=== PATIENT | male | born 1995 | race Caucasian/White ===

== ENCOUNTER 2018-06-15 11:48 | Emergency (ER) | payer MEDICAID ==
[~2018-06-15] VITALS: Ht 177.8 cm; Wt 97.7 kg
[~2018-06-15 11:48] MED LIST: MEDICAL MARJUANA; ONDA4TAB6 PO
[2018-06-15 12:33] LABS: CLARITY,URINE CLEAR (Clear); COLOR,URINE AMBER (Yellow); GLUCOSE, URINE NEGATIVE (Neg); KETONES,URINE TRACE mg/dl (Neg); LEUKOCYTE ESTERASE ,URINE NEGATIVE (Neg); NITRITES, URINE NEGATIVE (Neg); OCCULT BLOOD,URINE TRACE-LYSED (Neg); PROTEIN,URINE 100 mg/dl (Neg)
[2018-06-15 12:37] LABS: UA COLLECTION TYPE CLN CATCH MIDSTREAM
[2018-06-15 12:43] LABS: MUCUS STRANDS MANY /LPF (Neg); SQUAMOUS EPITHELIAL CELL,UR FEW /LPF (FEW)
[2018-06-15 12:44] LABS: BACTERIA,URINE FEW /HPF (Neg); WBC,URINE 0-4 /HPF (0-4)
[2018-06-15 12:45] LABS: RBC,URINE 0-2 /HPF (0-2)
[2018-06-15 13:15] VITALS: BP 132/92
== END 2018-06-15 13:18 | disposition home or self-care (01) ==
LOC: ER 11:49
DX: R36.1 Hematospermia (principal); R11.2 Nausea with vomiting, unspecified; F12.90 Cannabis use, unspecified, uncomplicated; Z79.899 Other long term (current) drug therapy
CPT/HCPCS: 81001; 99283

== ENCOUNTER 2019-02-28 09:45 | Emergency (ER) | payer MEDICAID ==
[~2019-02-28] VITALS: Ht 177.8 cm; Wt 99.5 kg
[2019-02-28] MEDS ORDERED: CHLO25CA10 PO (10:32)
[2019-02-28] MEDS ORDERED: PRED20TA PO (10:32)
[2019-02-28 10:55] VITALS: BP 141/95
== END 2019-02-28 10:56 | disposition home or self-care (01) ==
LOC: ER 09:46
DX: L23.9 Allergic contact dermatitis, unspecified cause (principal); F10.239 Alcohol dependence with withdrawal, unspecified; F32.9 Major depressive disorder, single episode, unspecified; F12.90 Cannabis use, unspecified, uncomplicated; Y90.0 Blood alcohol level of less than 20 mg/100 ml
CPT/HCPCS: 99284

== ENCOUNTER 2019-05-04 09:46 | Emergency (ER) | payer MEDICAID ==
[~2019-05-04] VITALS: Ht 177.8 cm; Wt 97.6 kg
[~2019-05-04 09:46] MED LIST changes: +CHLO25CA10 PO
[2019-05-04 10:33] LABS: BASOPHILS # (AUTO) 0.1 X10'3 (0-0.2); EOSINOPHILS # (AUTO) 0.1 X10'3 (0-0.9); LYMPHOCYTES # (AUTO) 2.6 X10'3 (1.1-4.8); LYMPHOCYTES % (AUTO) 31.3 % (21-51); PLATELET COUNT 220 X10'3 (140-440); RED BLOOD COUNT 5.24 X10'6 (4.70-6.10)
[2019-05-04 10:35] LABS: BASOPHILS % (AUTO) 0.9 % (0-1); EOSINOPHILS % (AUTO) 0.9 % (0-6); HEMATOCRIT 46.1 % (42.0-52.0); HEMOGLOBIN 16.3 g/dl (14.0-17.9); MEAN CORPUSCULAR HGB CONC 35.3 g/dL (33.0-36.5); MEAN CORPUSCULAR VOLUME 87.9 FL (78-98); MEAN PLATELET VOLUME 7.7 FL (7.4-10.4); MONOCYTES # (AUTO) 0.4 X10'3 (0-0.9); MONOCYTES % (AUTO) 4.6 % (2-12); NEUTROPHILS # (AUTO) 5.1 X10'3 (1.8-7.7); NEUTROPHILS % (AUTO) 62.3 % (42-75); RED CELL DISTRIBUTION WIDTH 14.5 % (11.5-14.5); WHITE BLOOD COUNT 8.2 X10'3 (4.5-11.0)
[2019-05-04] MEDS ORDERED: famotidine 20mg tablet PO ONE (10:35)
[2019-05-04] MEDS ORDERED: mag hydrox/Alum hydrox/simeth 30ml oral suspension PO ONE (10:35)
[2019-05-04 10:48] LABS: ALANINE AMINOTRANSFERASE 64 U/L (12-78); ALBUMIN 4.3 G/DL (3.4-5.0); ALBUMIN/GLOBULIN RATIO 1.1 (1.1-1.5); ALKALINE PHOSPHATASE 104 IU/L (46-116); ANION GAP 15 (8-16); ASPARTATE AMINO TRANSFERASE 55 U/L (10-37); BILIRUBIN,TOTAL 0.9 MG/DL (0.1-1.0); BLOOD UREA NITROGEN 13 MG/DL (7-18); BUN/CREATININE RATIO 11.9 (5.4-32.0); CALCIUM 9.2 MG/DL (8.5-10.1); CHLORIDE 101 MMOL/L (99-107); CREATININE 1.09 MG/DL (0.60-1.10); GLUCOSE 120 MG/DL (70-104); POTASSIUM 3.6 MMOL/L (3.5-5.1); SODIUM 140 MMOL/L (135-145); TOTAL CARBON DIOXIDE 23.6 MMOL/L (24-32); TOTAL PROTEIN 8.3 G/DL (6.4-8.2); eGFR 83 ML/MIN
[2019-05-04 10:54] LABS: C-REACTIVE PROTEIN < 0.05 MG/DL (0.0-0.5)
[2019-05-04] MEDS ORDERED: CHLO25CA10 PO (11:49)
[2019-05-04] MEDS ORDERED: PANT20TA3 PO (11:49)
[2019-05-04 11:50] VITALS: BP 141/83
== END 2019-05-04 11:59 | disposition home or self-care (01) ==
LOC: ER 09:46
DX: R07.89 Other chest pain (principal); R06.02 Shortness of breath; R11.10 Vomiting, unspecified; I25.10 Atherosclerotic heart disease of native coronary artery without angina pectoris; I25.2 Old myocardial infarction; F32.9 Major depressive disorder, single episode, unspecified; F12.90 Cannabis use, unspecified, uncomplicated; Z72.89 Other problems related to lifestyle; Z79.899 Other long term (current) drug therapy
CPT/HCPCS: 36415; 71045; 80053; 84484; 85025; 85651; 86140; 93005; 99285

== ENCOUNTER 2019-05-30 13:06 | Emergency (ER) | payer MEDICAID ==
[~2019-05-30] VITALS: Ht 154.9 cm; Wt 98.3 kg
[~2019-05-30 13:06] MED LIST changes: +PANT20TA3 PO
[2019-05-30 13:08] VITALS: BP 142/94
[2019-05-30] MEDS ORDERED: CHLO25CA10 PO (13:44)
== END 2019-05-30 14:49 | disposition home or self-care (01) ==
LOC: ER 13:07
DX: F10.10 Alcohol abuse, uncomplicated (principal); I25.10 Atherosclerotic heart disease of native coronary artery without angina pectoris; I25.2 Old myocardial infarction; F12.90 Cannabis use, unspecified, uncomplicated; Z87.11 Personal history of peptic ulcer disease; Z79.899 Other long term (current) drug therapy; Y90.9 Presence of alcohol in blood, level not specified
CPT/HCPCS: 99283

== ENCOUNTER 2019-06-02 10:01 | Emergency (ER) | payer MEDICAID ==
[~2019-06-02] VITALS: Ht 177.8 cm; Wt 93.2 kg
[2019-06-02 10:03] VITALS: BP 136/95
--- NOTE | 2019-06-02 10:20 | NUR ---
PT IS 23 YO MALE NEEDS MEDICAL CLEARANCE FOR VISIONS OF THE CROSS FOR ETOH DETOX, PT LAST DRINK WAS TUESDAY, CURRENTLY ON LIBRIUM FOR WITHDRAWALS, SLIGHTLY SHAKY "LITTLE CONFUSED", DENIES HALLUCINATIONS, PT IS CALM AND COOPERATIVE, WAITING TO BE BE EVALUATED BY PROVIDER
[2019-06-02] MEDS ORDERED: chlordiazePOXIDE 25mg capsule PO ONE (10:35)
== END 2019-06-02 10:46 | disposition home or self-care (01) ==
LOC: ER 10:02
DX: R11.10 Vomiting, unspecified (principal); R25.1 Tremor, unspecified; M79.18 Myalgia, other site; I25.10 Atherosclerotic heart disease of native coronary artery without angina pectoris; I25.2 Old myocardial infarction; F32.9 Major depressive disorder, single episode, unspecified; F12.90 Cannabis use, unspecified, uncomplicated; Z72.89 Other problems related to lifestyle; Z79.899 Other long term (current) drug therapy
CPT/HCPCS: 99281

== ENCOUNTER 2019-06-03 11:52 | Emergency (ER) | payer MEDICAID ==
[~2019-06-03] VITALS: Ht 177.8 cm; Wt 105.0 kg
[2019-06-03 13:00] VITALS: BP 141/98
== END 2019-06-03 13:01 | disposition home or self-care (01) ==
LOC: ER 11:52
DX: J06.9 Acute upper respiratory infection, unspecified (principal); Z20.828 Contact with and (suspected) exposure to other viral communicable diseases; R05 Cough; R21 Rash and other nonspecific skin eruption; I25.10 Atherosclerotic heart disease of native coronary artery without angina pectoris; I25.2 Old myocardial infarction; F32.9 Major depressive disorder, single episode, unspecified; F12.90 Cannabis use, unspecified, uncomplicated; Z87.11 Personal history of peptic ulcer disease; Z72.89 Other problems related to lifestyle; Z79.899 Other long term (current) drug therapy
CPT/HCPCS: 36415; 71045; 87635; 99284

== ENCOUNTER 2019-06-21 16:40 | Emergency (ER) | payer MEDICAID ==
[~2019-06-21] VITALS: Ht 177.8 cm; Wt 95.0 kg
[2019-06-21 17:35] LABS: BASOPHILS # (AUTO) 0.1 X10'3 (0-0.2); EOSINOPHILS % (AUTO) 0.5 % (0-6); HEMATOCRIT 50.1 % (42.0-52.0); HEMOGLOBIN 17.1 g/dl (14.0-17.9); LYMPHOCYTES # (AUTO) 2.1 X10'3 (1.1-4.8); LYMPHOCYTES % (AUTO) 27.1 % (21-51); MEAN CORPUSCULAR HEMOGLOBIN 30.5 PG (27.0-31.0); MEAN CORPUSCULAR HGB CONC 34.2 g/dL (33.0-36.5); MEAN CORPUSCULAR VOLUME 89.3 FL (78-98); MEAN PLATELET VOLUME 8.2 FL (7.4-10.4); MONOCYTES # (AUTO) 0.4 X10'3 (0-0.9); MONOCYTES % (AUTO) 4.7 % (2-12); NEUTROPHILS # (AUTO) 5.2 X10'3 (1.8-7.7); NEUTROPHILS % (AUTO) 66.7 % (42-75); PLATELET COUNT 254 X10'3 (140-440); RED BLOOD COUNT 5.61 X10'6 (4.70-6.10); RED CELL DISTRIBUTION WIDTH 14.3 % (11.5-14.5); WHITE BLOOD COUNT 7.8 X10'3 (4.5-11.0)
[2019-06-21 17:44] LABS: ALANINE AMINOTRANSFERASE 129 U/L (12-78); ALBUMIN 4.4 G/DL (3.4-5.0); ALKALINE PHOSPHATASE 109 IU/L (46-116); ANION GAP 14 (8-16); ASPARTATE AMINO TRANSFERASE 112 U/L (10-37); BILIRUBIN,TOTAL 0.7 MG/DL (0.1-1.0); BLOOD UREA NITROGEN 13 MG/DL (7-18); BUN/CREATININE RATIO 12.3 (5.4-32.0); CALCIUM 9.4 MG/DL (8.5-10.1); CHLORIDE 98 MMOL/L (99-107); CREATININE 1.06 MG/DL (0.60-1.10); GLUCOSE 97 MG/DL (70-104); LIPASE 208 U/L (73-393); POTASSIUM 4.1 MMOL/L (3.5-5.1); SODIUM 139 MMOL/L (135-145); TOTAL CARBON DIOXIDE 26.6 MMOL/L (24-32); TOTAL PROTEIN 8.6 G/DL (6.4-8.2); eGFR 86 ML/MIN
[2019-06-21] MEDS ORDERED: GABA-530 PO (18:11)
[2019-06-21 18:33] VITALS: BP 150/94
== END 2019-06-21 18:30 | disposition home or self-care (01) ==
LOC: ER 16:41
DX: F10.239 Alcohol dependence with withdrawal, unspecified (principal); R44.0 Auditory hallucinations; R53.1 Weakness; I25.10 Atherosclerotic heart disease of native coronary artery without angina pectoris; I25.2 Old myocardial infarction; F32.9 Major depressive disorder, single episode, unspecified; F12.90 Cannabis use, unspecified, uncomplicated; Z79.899 Other long term (current) drug therapy; Y90.9 Presence of alcohol in blood, level not specified
CPT/HCPCS: 36415; 80053; 83690; 85025; 93005; 99284

== ENCOUNTER 2019-09-28 20:13 | Emergency (ER) | payer MEDICAID ==
[~2019-09-28] VITALS: Ht 177.8 cm; Wt 101.2 kg
[~2019-09-28 20:13] MED LIST changes: +GABA-530 PO
[2019-09-28 21:01] LABS: BASOPHILS # (AUTO) 0.1 X10'3 (0-0.2); BASOPHILS % (AUTO) 1.1 % (0-1); EOSINOPHILS % (AUTO) 0.6 % (0-6); HEMATOCRIT 47.5 % (42.0-52.0); HEMOGLOBIN 16.7 g/dl (14.0-17.9); LYMPHOCYTES # (AUTO) 2.7 X10'3 (1.1-4.8); LYMPHOCYTES % (AUTO) 45.2 % (21-51); MEAN CORPUSCULAR HEMOGLOBIN 32.5 PG (27.0-31.0); MEAN CORPUSCULAR HGB CONC 35.1 g/dL (33.0-36.5); MEAN CORPUSCULAR VOLUME 92.5 FL (78-98); MEAN PLATELET VOLUME 7.8 FL (7.4-10.4); MONOCYTES # (AUTO) 0.6 X10'3 (0-0.9); MONOCYTES % (AUTO) 9.6 % (2-12); NEUTROPHILS # (AUTO) 2.5 X10'3 (1.8-7.7); NEUTROPHILS % (AUTO) 43.5 % (42-75); PLATELET COUNT 142 X10'3 (140-440); RED BLOOD COUNT 5.14 X10'6 (4.70-6.10); RED CELL DISTRIBUTION WIDTH 13.5 % (11.5-14.5); WHITE BLOOD COUNT 5.9 X10'3 (4.5-11.0)
[2019-09-28 21:12] LABS: ALANINE AMINOTRANSFERASE 523 U/L (12-78); ALBUMIN 4.1 G/DL (3.4-5.0); ALBUMIN/GLOBULIN RATIO 1.1 (1.1-1.5); ALKALINE PHOSPHATASE 126 IU/L (46-116); ANION GAP 13 (8-16); ASPARTATE AMINO TRANSFERASE 384 U/L (10-37); BILIRUBIN,TOTAL 0.6 MG/DL (0.1-1.0); BUN/CREATININE RATIO 4.8 (5.4-32.0); CALCIUM 9.2 MG/DL (8.5-10.1); CHLORIDE 100 MMOL/L (99-107); CREATININE 1.05 MG/DL (0.60-1.10); GLUCOSE 141 MG/DL (70-104); LIPASE 770 U/L (73-393); POTASSIUM 3.4 MMOL/L (3.5-5.1); SODIUM 142 MMOL/L (135-145); TOTAL CARBON DIOXIDE 29.1 MMOL/L (24-32); TOTAL PROTEIN 7.9 G/DL (6.4-8.2); eGFR 86 ML/MIN
[2019-09-28 21:23] LABS: BLOOD UREA NITROGEN 5 MG/DL (7-18)
[2019-09-28 22:22] LABS: CLARITY,URINE CLEAR (Clear); COLOR,URINE YELLOW (Yellow); GLUCOSE, URINE NEGATIVE (Neg); KETONES,URINE NEGATIVE (Neg); LEUKOCYTE ESTERASE ,URINE NEGATIVE (Neg); NITRITES, URINE NEGATIVE (Neg); OCCULT BLOOD,URINE SMALL (Neg); PROTEIN,URINE >=300 mg/dl (Neg)
[2019-09-28] MEDS ORDERED: ONDA4TAB12 PO (22:27)
[2019-09-28] MEDS ORDERED: DICY10CA88 PO (22:27)
[2019-09-28] MEDS ORDERED: CHLO25CA10 PO (22:27)
[2019-09-28 22:37] LABS: UA COLLECTION TYPE CLN CATCH MIDSTREAM
[2019-09-28 22:38] LABS: BACTERIA,URINE FEW /HPF (Neg); RBC,URINE 0-2 /HPF (0-2); SQUAMOUS EPITHELIAL CELL,UR FEW /LPF (FEW); WBC,URINE NONE SEEN /HPF (0-4)
[2019-09-28 22:45] VITALS: BP 149/108
== END 2019-09-28 22:49 | disposition home or self-care (01) ==
LOC: ER 20:14
DX: F10.239 Alcohol dependence with withdrawal, unspecified (principal); K70.10 Alcoholic hepatitis without ascites; R19.7 Diarrhea, unspecified; R10.9 Unspecified abdominal pain; I25.10 Atherosclerotic heart disease of native coronary artery without angina pectoris; I25.2 Old myocardial infarction; F32.9 Major depressive disorder, single episode, unspecified; F17.210 Nicotine dependence, cigarettes, uncomplicated; F12.90 Cannabis use, unspecified, uncomplicated; Z87.11 Personal history of peptic ulcer disease; Z72.89 Other problems related to lifestyle; Z79.899 Other long term (current) drug therapy; Y90.9 Presence of alcohol in blood, level not specified
CPT/HCPCS: 36415; 80053; 81001; 83690; 85025; 99283

== ENCOUNTER 2019-11-07 10:03 | Emergency (ER) | payer MEDICAID ==
[~2019-11-07] VITALS: Ht 177.8 cm; Wt 101.6 kg
[~2019-11-07 10:03] MED LIST changes: +ONDA4TAB12 PO; +PANT20TA18 PO; -PANT20TA3 PO
[2019-11-07] MEDS ORDERED: chlordiazePOXIDE 25mg capsule PO ONE (11:20)
[2019-11-07] MEDS ORDERED: normal saline 1000ML IV soln IVB ONE (11:20)
[2019-11-07 11:56] LABS: BASOPHILS % (AUTO) 0.6 % (0-1); EOSINOPHILS # (AUTO) 0.1 X10'3 (0-0.9); EOSINOPHILS % (AUTO) 1.1 % (0-6); HEMATOCRIT 49.5 % (42.0-52.0); HEMOGLOBIN 17.4 g/dl (14.0-17.9); LYMPHOCYTES # (AUTO) 1.9 X10'3 (1.1-4.8); LYMPHOCYTES % (AUTO) 34.4 % (21-51); MEAN CORPUSCULAR HEMOGLOBIN 32.8 PG (27.0-31.0); MEAN CORPUSCULAR HGB CONC 35.1 g/dL (33.0-36.5); MEAN CORPUSCULAR VOLUME 93.5 FL (78-98); MEAN PLATELET VOLUME 7.7 FL (7.4-10.4); MONOCYTES # (AUTO) 0.5 X10'3 (0-0.9); MONOCYTES % (AUTO) 9.4 % (2-12); NEUTROPHILS % (AUTO) 54.5 % (42-75); PLATELET COUNT 178 X10'3 (140-440); RED BLOOD COUNT 5.29 X10'6 (4.70-6.10); RED CELL DISTRIBUTION WIDTH 13.3 % (11.5-14.5); WHITE BLOOD COUNT 5.5 X10'3 (4.5-11.0)
[2019-11-07 12:10] LABS: ALANINE AMINOTRANSFERASE 288 U/L (12-78); ALBUMIN 4.1 G/DL (3.4-5.0); ALKALINE PHOSPHATASE 143 IU/L (46-116); ANION GAP 7 (8-16); ASPARTATE AMINO TRANSFERASE 291 U/L (10-37); BILIRUBIN,TOTAL 0.7 MG/DL (0.1-1.0); BLOOD UREA NITROGEN 6 MG/DL (7-18); BUN/CREATININE RATIO 5.9 (5.4-32.0); CHLORIDE 100 MMOL/L (99-107); CREATININE 1.01 MG/DL (0.60-1.10); ETHANOL 0.253 GM/DL (0.0-0.010); GLUCOSE 96 MG/DL (70-104); LIPASE 210 U/L (73-393); MAGNESIUM 2.5 MG/DL (1.5-2.4); POTASSIUM 3.9 MMOL/L (3.5-5.1); SODIUM 138 MMOL/L (135-145); TOTAL CARBON DIOXIDE 30.6 MMOL/L (24-32); TOTAL PROTEIN 8.3 G/DL (6.4-8.2); eGFR 90 ML/MIN
[2019-11-07] MEDS ORDERED: CHLO25CA10 PO (12:41)
[2019-11-07 13:09] VITALS: BP 132/91
== END 2019-11-07 13:08 | disposition home or self-care (01) ==
LOC: ER 10:04
DX: K70.10 Alcoholic hepatitis without ascites (principal); F10.239 Alcohol dependence with withdrawal, unspecified; R11.0 Nausea; I25.10 Atherosclerotic heart disease of native coronary artery without angina pectoris; I25.2 Old myocardial infarction; F32.9 Major depressive disorder, single episode, unspecified; F12.90 Cannabis use, unspecified, uncomplicated; Z79.899 Other long term (current) drug therapy; Y90.0 Blood alcohol level of less than 20 mg/100 ml
CPT/HCPCS: 36415; 80053; 80320; 83690; 83735; 85025; 96360; 99284; J7030

== ENCOUNTER 2020-01-07 20:54 | Emergency (ER) | payer MEDICAID ==
[~2020-01-07] VITALS: Ht 180.3 cm; Wt 103.0 kg
[2020-01-07] MEDS ORDERED: normal saline 1000ML IV soln IV ONE (21:15)
[2020-01-07] MEDS ORDERED: folic acid 1mg/0.2ml inj IV ONE (21:15)
[2020-01-07] MEDS ORDERED: thiamine 100mg/ml 2ml inj. IV ONE (21:15)
[2020-01-07 21:46] LABS: BASOPHILS % (AUTO) 0.9 % (0-1); EOSINOPHILS % (AUTO) 0.9 % (0-6); HEMATOCRIT 50.5 % (42.0-52.0); HEMOGLOBIN 17.6 g/dl (14.0-17.9); LYMPHOCYTES # (AUTO) 1.9 X10'3 (1.1-4.8); LYMPHOCYTES % (AUTO) 37.1 % (21-51); MEAN CORPUSCULAR HEMOGLOBIN 32.9 PG (27.0-31.0); MEAN CORPUSCULAR HGB CONC 34.9 g/dL (33.0-36.5); MEAN CORPUSCULAR VOLUME 94.3 FL (78-98); MEAN PLATELET VOLUME 7.7 FL (7.4-10.4); MONOCYTES # (AUTO) 0.6 X10'3 (0-0.9); NEUTROPHILS # (AUTO) 2.6 X10'3 (1.8-7.7); NEUTROPHILS % (AUTO) 50.1 % (42-75); PLATELET COUNT 130 X10'3 (140-440); RED BLOOD COUNT 5.36 X10'6 (4.70-6.10); WHITE BLOOD COUNT 5.2 X10'3 (4.5-11.0)
[2020-01-07 21:59] LABS: ALANINE AMINOTRANSFERASE 281 U/L (12-78); ALKALINE PHOSPHATASE 159 IU/L (46-116); ANION GAP 13 (8-16); ASPARTATE AMINO TRANSFERASE 290 U/L (10-37); BILIRUBIN,TOTAL 0.8 MG/DL (0.1-1.0); BLOOD UREA NITROGEN 4 MG/DL (7-18); BUN/CREATININE RATIO 3.8 (5.4-32.0); CALCIUM 8.6 MG/DL (8.5-10.1); CHLORIDE 102 MMOL/L (99-107); CREATININE 1.05 MG/DL (0.60-1.10); GLUCOSE 176 MG/DL (70-104); SODIUM 143 MMOL/L (135-145); TOTAL CARBON DIOXIDE 28.5 MMOL/L (24-32); TOTAL PROTEIN 8.2 G/DL (6.4-8.2); eGFR 86 ML/MIN
[2020-01-07 22:03] LABS: ETHANOL 0.468 GM/DL (0.0-0.010)
--- NOTE | 2020-01-07 22:23 | NUR ---
MOTHER OF PATIENT IS GOING TO NEED TO GO HOME FOR A BIT TO GO THE BATHROOM . SHE CAN BE REACHED AT [facility] [phone]
--- NOTE | 2020-01-07 22:29 | NUR ---
pt resting. easily arousable. 2nd liter of saline now infusing.
[2020-01-07] MEDS ORDERED: potassium Cl 20 mEq SR tablet PO STA (22:47)
[2020-01-07 23:02] LABS: CLARITY,URINE CLEAR (Clear); COLOR,URINE YELLOW (Yellow); GLUCOSE, URINE NEGATIVE (Neg); KETONES,URINE NEGATIVE (Neg); LEUKOCYTE ESTERASE ,URINE NEGATIVE (Neg); NITRITES, URINE NEGATIVE (Neg); OCCULT BLOOD,URINE TRACE-INTACT (Neg); PROTEIN,URINE 100 mg/dl (Neg)
[2020-01-07 23:04] LABS: UA COLLECTION TYPE NON-SPECIFIED
[2020-01-07 23:10] LABS: BACTERIA,URINE NONE SEEN /HPF (Neg); RBC,URINE 0-2 /HPF (0-2); SQUAMOUS EPITHELIAL CELL,UR FEW /LPF (FEW); WBC,URINE NONE SEEN /HPF (0-4)
[2020-01-07 23:14] LABS: URINE AMPHETAMINE SCREEN NEGATIVE (Neg); URINE BARBITUATE SCREEN NEGATIVE (Neg); URINE BENZODIAZEPINES SCREEN NEGATIVE (Neg); URINE CANNABINOID SCREEN NEGATIVE (Neg); URINE COCAINE SCREEN NEGATIVE (Neg); URINE METHADONE SCREEN NEGATIVE (Neg); URINE OPIATE SCREEN NEGATIVE (Neg); URINE PHENCYCLIDINE SCREEN NEGATIVE (Neg)
[2020-01-07 23:28] VITALS: BP 133/93
== END 2020-01-07 23:29 | disposition home or self-care (01) ==
LOC: ER 20:55
DX: F10.229 Alcohol dependence with intoxication, unspecified (principal); E87.6 Hypokalemia; E86.0 Dehydration; I25.10 Atherosclerotic heart disease of native coronary artery without angina pectoris; F12.90 Cannabis use, unspecified, uncomplicated; Z79.899 Other long term (current) drug therapy; Y90.0 Blood alcohol level of less than 20 mg/100 ml
CPT/HCPCS: 36415; 80053; 80305; 80320; 81001; 82948; 85025; 93005; 96361; 96374; 96375; 99284; J3411; J3490; J7030

== ENCOUNTER 2022-01-24 02:58 | Emergency (ER) | payer MEDICAID ==
[~2022-01-24] VITALS: Ht 177.8 cm; Wt 100.0 kg
[2022-01-24] MEDS ORDERED: thiamine 100mg/ml 2ml inj. IV ONE (03:55)
[2022-01-24] MEDS ORDERED: normal saline 1000ML IV soln IVB ONE ×2 (03:55→04:50)
[2022-01-24] MEDS ORDERED: ondansetron/PF 4mg/2ml inj IV ONE (03:55)
[2022-01-24 04:21] LABS: BASOPHILS # (AUTO) 0.1 X10'3 (0-0.2); BASOPHILS % (AUTO) 1.5 % (0-1); EOSINOPHILS % (AUTO) 0.5 % (0-6); HEMATOCRIT 45.4 % (42.0-52.0); LYMPHOCYTES # (AUTO) 1.5 X10'3 (1.1-4.8); LYMPHOCYTES % (AUTO) 25.3 % (21-51); MEAN CORPUSCULAR HEMOGLOBIN 30.8 PG (27.0-31.0); MEAN CORPUSCULAR HGB CONC 35.3 g/dL (33.0-36.5); MEAN CORPUSCULAR VOLUME 87.4 FL (78-98); MEAN PLATELET VOLUME 7.6 FL (7.4-10.4); MONOCYTES # (AUTO) 0.4 X10'3 (0-0.9); NEUTROPHILS # (AUTO) 3.9 X10'3 (1.8-7.7); NEUTROPHILS % (AUTO) 66.7 % (42-75); PLATELET COUNT 119 X10'3 (140-440); RED BLOOD COUNT 5.19 X10'6 (4.70-6.10); RED CELL DISTRIBUTION WIDTH 13.5 % (11.5-14.5); WHITE BLOOD COUNT 5.9 X10'3 (4.5-11.0)
[2022-01-24 04:45] LABS: ALANINE AMINOTRANSFERASE 317 U/L (12-78); ALBUMIN 4.4 G/DL (3.4-5.0); ALBUMIN/GLOBULIN RATIO 1.1 (1.1-1.5); ALKALINE PHOSPHATASE 190 IU/L (46-116); ANION GAP 20 (8-16); ASPARTATE AMINO TRANSFERASE 277 U/L (10-37); BILIRUBIN,TOTAL 2.8 MG/DL (0.1-1.0); BLOOD UREA NITROGEN 9 MG/DL (7-18); BUN/CREATININE RATIO 11.7 (5.4-32.0); CALCIUM 9.3 MG/DL (8.5-10.1); CHLORIDE 95 MMOL/L (99-107); CREATININE 0.77 MG/DL (0.60-1.10); GLUCOSE 104 MG/DL (70-104); POTASSIUM 3.6 MMOL/L (3.5-5.1); SODIUM 139 MMOL/L (135-145); TOTAL CARBON DIOXIDE 23.6 MMOL/L (24-32); TOTAL PROTEIN 8.4 G/DL (6.4-8.2); eGFR > 90 ML/MIN
[2022-01-24] MEDS ORDERED: CHLO25CA10 PO (05:07)
[2022-01-24 05:48] VITALS: BP 129/85
== END 2022-01-24 05:51 | disposition home or self-care (01) ==
LOC: ER 02:58
DX: F10.10 Alcohol abuse, uncomplicated (principal); F12.90 Cannabis use, unspecified, uncomplicated; Y90.9 Presence of alcohol in blood, level not specified
CPT/HCPCS: 36415; 80053; 85025; 96361; 96374; 96375; 99284; J2405; J3411; J7030